=== PATIENT | male | born 1990 | race Caucasian/White ===

== ENCOUNTER 2020-01-07 14:58 | Emergency (ER) | payer SELFPAY ==
[~2020-01-07] VITALS: Ht 180.3 cm; Wt 79.4 kg
--- NOTE | 2020-01-07 15:15 | NUR ---
ED Nurse Note: Patient walked in to ER from home due to left sided chest pain, non-radiating. EKG done. Patient is aox4, placed on continuing education director, show sinus tachycardia with HR 115. Patient is on room air, SpO2 98%. Denies SOB, dyspnea or N/V or diaphoresis. Patient has hx of anxiety and appears to be anxious at this time. Per patient consumed alcohol yesterday and vaping marijuana. Safety precautions in place, bed is locked and side rails up x2; all needs attended to. Instructed to call for assistance, verbalized understanding.
--- NOTE | 2020-01-07 15:17 | NUR ---
ED Nurse Note: ERMD at bedside
--- NOTE | 2020-01-07 15:18 | NUR ---
ED Nurse Note: EKG results given to LADY
--- NOTE | 2020-01-07 15:25 | NUR ---
ED Nurse Note: EPIV established, blood collected and sent down to lab.
--- NOTE | 2020-01-07 15:40 | NUR ---
ED Nurse Note: xray at bedside
[2020-01-07 15:46] VITALS: BP 143/103
[2020-01-07 15:49] LABS: BASOPHILS % (AUTO) 0.9 % (0.0-2.0); EOSINOPHILS % (AUTO) 0.5 % (0.0-3.0); HEMATOCRIT 49.2 % (42.0-52.0); HEMOGLOBIN 16.8 G/DL (14.2-18.0); LYMPHOCYTES % (AUTO) 17.3 % (20.0-45.0); MEAN CORPUSCULAR VOLUME 89 FL (80-99); MONOCYTES % (AUTO) 7.2 % (1.0-10.0); NEUTROPHILS % (AUTO) 74.1 % (45.0-75.0); PLATELET COUNT 217 K/UL (150-450); RED BLOOD COUNT 5.54 M/UL (4.70-6.10); RED CELL DISTRIBUTION WIDTH 11.6 % (11.6-14.8); WHITE BLOOD COUNT 7.7 K/UL (4.8-10.8)
[2020-01-07 15:54] LABS: ANION GAP 11 mmol/L (5-15); BLOOD UREA NITROGEN 8 mg/dL (7-18); CALCIUM 9.5 MG/DL (8.5-10.1); CARBON DIOXIDE 27 MMOL/L (21-32); CHLORIDE 104 MMOL/L (98-107); CREATININE 1.1 MG/DL (0.55-1.30); POTASSIUM 3.6 MMOL/L (3.5-5.1); SODIUM 142 MMOL/L (136-145)
[2020-01-07 15:58] LABS: ALANINE AMINOTRANSFERASE 38 U/L (12-78); ALBUMIN 4.9 G/DL (3.4-5.0); ALBUMIN/GLOBULIN RATIO 1.6 (1.0-2.7); ALKALINE PHOSPHATASE 82 U/L (46-116); ASPARTATE AMINO TRANSFERASE 23 U/L (15-37); BILIRUBIN,TOTAL 0.6 MG/DL (0.2-1.0); PHOSPHORUS 3.7 MG/DL (2.5-4.9)
--- NOTE | 2020-01-07 16:26 | NUR ---
ED Nurse Note: Patient remains on gurney, aox4, no distress at this time; remains sinus tachycardia on the monitor with HR 111. Patient still c/o mild chest pain 2/10 at this time. No n/v/diaphoresis noted. Safety precautions remains in place. Magnesium IV ongoing. Will continue to monitor.
[2020-01-07] MEDS ORDERED: PRILOSEC OTC20 MG ORAL (16:38)
--- NOTE | 2020-01-07 16:46 | Diagnostic Imaging Report ---
Indication: Shortness of breath Technique: One view of the chest Comparison: none Findings: Lungs and pleural spaces are clear. Heart size is normal. Impression: No acute process
[2020-01-07 17:01] VITALS: BP 154/90
--- NOTE | 2020-01-07 17:01 | NUR ---
ER DISCHARGE NOTE: Patient is cleared to be discharged per ERMD, pt is aox4, on room air, with stable vital signs. pt was given dc and prescription instructions, pt was able to verbalize understanding, pt id band and iv site removed without complications. pt is able to ambulate with steady gait. pt took all belongings.
--- NOTE | 2020-01-08 23:33 | Emergency Room Report ---
History of Present Illness General Chief Complaint: Chest Pain Source: Patient Present Illness HPI Patient is a 29-year-old male presents after increased chest discomfort. Patient reports having increased burning sensation to his chest. Associated palpitations. Denies any change with exertion. Reports having last alcohol intake last night. States he drinks alcohol approximately 3 times per week. Denies any cocaine use. Denies any vomiting or diarrhea. Denies any recent hematemesis. Allergies: Coded Allergies: No Known Allergies (Unverified , 01/07/20) COVID-19 Screening Contact w/high risk pt: No Recent Travel to affected area: No Experienced COVID-19 symptoms?: No COVID-19 Testing performed SOCIAL MEDIA CAMPAIGN MANAGER: No Patient History Past Medical History: see triage record Reviewed Nursing Documentation: PMH: Agreed; PSxH: Agreed Nursing Documentation-PMH Past Medical History: No History, Except For History Of Psychiatric Problem: Yes - anxiety Review of Systems All Other Systems: negative except mentioned in HPI Physical Exam Vital Signs Date Time Temp Pulse Resp B/P (MAP) Pulse Ox O2 Delivery O2 Flow Rate FiO2 01/07/20 15:10 97.3 111 20 139/92 (108) 96 Room Air Sp02 EP Interpretation: reviewed, normal General Appearance: normal inspection, well appearing, no apparent distress, alert, GCS 15 Head: atraumatic ENT: normal ENT inspection, hearing grossly normal, normal voice Neck: normal inspection, full range of motion, supple, no bony tend Respiratory: normal inspection, lungs clear, normal breath sounds, no respiratory distress, no retraction, no wheezing Cardiovascular #1: regular rate, rhythm, no edema Gastrointestinal: normal inspection, normal bowel sounds, non tender, soft, no guarding, no hernia Genitourinary: no CVA tenderness Musculoskeletal: normal inspection, back normal, normal range of motion Neurologic: alert, responsive, speech normal, normal inspection Psychiatric: normal inspection, judgement/insight normal, mood/affect normal Medical Decision Making Diagnostic Impression: Primary Impression: Hypomagnesemia Additional Impressions: Nonspecific chest pain Dehydration ER Course Patient presented for chest pain. Differential diagnosis include was not limited to pneumonia, pancreatitis, Alcohol withdrawal, myocardial infarction among others. Because of complexity of patient's case laboratory tests and imaging studies were ordered. Patient's laboratory testing showed some evidence of hypomagnesemia. Patient given IV fluids as well as IV magnesium. He was noted to have some improvement in his symptoms. He was advised to stop drinking alcohol. He is advised to follow-up with primary care physician for reevaluation. He is advised to return if worse. Patient states he normally takes medications for anxiety. Labs Test 01/07/20 15:25 White Blood Count 7.7 K/UL (4.8-10.8) Red Blood Count 5.54 M/UL (4.70-6.10) Hemoglobin 16.8 G/DL (14.2-18.0) Hematocrit 49.2 % (42.0-52.0) Mean Corpuscular Volume 89 FL (80-99) Mean Corpuscular Hemoglobin 30.3 PG (27.0-31.0) Mean Corpuscular Hemoglobin Concent 34.0 G/DL (32.0-36.0) Red Cell Distribution Width 11.6 % (11.6-14.8) Platelet Count 217 K/UL (150-450) Mean Platelet Volume 8.0 FL (6.5-10.1) Neutrophils (%) (Auto) 74.1 % (45.0-75.0) Lymphocytes (%) (Auto) 17.3 % (20.0-45.0) Monocytes (%) (Auto) 7.2 % (1.0-10.0) Eosinophils (%) (Auto) 0.5 % (0.0-3.0) Basophils (%) (Auto) 0.9 % (0.0-2.0) Sodium Level 142 MMOL/L (136-145) Potassium Level 3.6 MMOL/L (3.5-5.1) Chloride Level 104 MMOL/L (98-107) Carbon Dioxide Level 27 MMOL/L (21-32) Anion Gap 11 mmol/L (5-15) Blood Urea Nitrogen 8 mg/dL (7-18) Creatinine 1.1 MG/DL (0.55-1.30) Estimat Glomerular Filtration Rate > 60 mL/min (>60) Glucose Level 116 MG/DL (74-106) Calcium Level 9.5 MG/DL (8.5-10.1) Phosphorus Level 3.7 MG/DL (2.5-4.9) Magnesium Level 1.7 MG/DL (1.8-2.4) Total Bilirubin 0.6 MG/DL (0.2-1.0) Aspartate Amino Transf (AST/SGOT) 23 U/L (15-37) Alanine Aminotransferase (ALT/SGPT) 38 U/L (12-78) Alkaline Phosphatase 82 U/L (46-116) Troponin I 0.000 ng/mL (0.000-0.056) Total Protein 7.9 G/DL (6.4-8.2) Albumin 4.9 G/DL (3.4-5.0) Globulin 3.0 g/dL Albumin/Globulin Ratio 1.6 (1.0-2.7) Lipase 107 U/L (73-393) EKG Diagnostic Results Rate: normal Rhythm: NSR ST Segments: no acute changes Last Vital Signs Date Time Temp Pulse Resp B/P (MAP) Pulse Ox O2 Delivery O2 Flow Rate FiO2 01/07/20 17:01 115 18 154/90 99 Room Air 01/07/20 15:46 97.3 Status: improved Disposition: HOME, SELF-CARE Condition: Stable Scripts Omeprazole Magnesium (PRILOSEC OTC) 20 Mg Tablet. 20 MG ORAL DAILY, #30 TAB Prov: Filiberto Gutiérrez MD 01/07/20 Patient Instructions: Nonspecific Chest Pain Filiberto Gutiérrez MD Jan 08, 2020 23:33
== END 2020-01-07 17:01 | disposition home or self-care (01) ==
LOC: EMR 15:40
DX: E83.42 Hypomagnesemia (principal); R07.9 Chest pain, unspecified; E86.0 Dehydration; R00.2 Palpitations; F41.9 Anxiety disorder, unspecified
CPT/HCPCS: 36415; 71045; 80053; 83690; 83735; 84100; 84484; 85025; 93005; 96365; 99284